=== PATIENT | female | born 1985 | race Caucasian/White ===

== ENCOUNTER 2017-05-11 09:56 | Emergency (ER) | payer SELFPAY ==
--- NOTE | 2017-05-11 10:14 | ED.PDOC ---
History of Present Illness - General Chief Complaint: ENT Problem Stated Complaint: left ear pain Time Seen by Provider: 05/11/17 10:13 Source: patient, RN notes reviewed Exam Limitations: no limitations - History of Present Illness Initial Comments: Mackenzie Gagnon 31 y/o female with history of chronic ear infection left ear stated that she started having throbbing left ear pain since yesterday. Timing/Duration: gradual EENT Location: ear (L) Prearrival Treatment: no prearrival treatment Improving Factors: nothing Worsening Factors: nothing Associated Symptoms: denies symptoms Allergies/Adverse Reactions: Allergies NO KNOWN ALLERGY Allergy (Verified 05/11/17 10:20) Home Medications: Ambulatory Orders Azithromycin [Zithromax Z-Bertin] 1 ea PO DAILY #1 pack 05/11/17 Review of Systems - Review of Systems Constitutional: States: no symptoms reported EENTM: States: see HPI Respiratory: States: no symptoms reported Cardiology: States: no symptoms reported Gastrointestinal/Abdominal: States: no symptoms reported Genitourinary: States: no symptoms reported Past Medical History (General) - Patient Medical History Hx Seizures: No Hx Asthma: No Hx of COPD: No Hx Hypertension: Yes Hx Other PMH: Yes - fibromyalgia Surgical History: tonsillectomy, other - right knee,left arm - Social History Hx Tobacco Use: No Hx Chewing Tobacco Use: No Hx Physical Abuse: No Hx Emotional Abuse: No Hx Suspected Abuse: No - Activities of Daily Living Patient Lives Alone: No - family - Female History Patient is a Female of Child Bearing Age (10 -59 yrs old): Yes Hx Last Menstrual Period: 04/29/17 Patient : No Family Medical History - Family History Mother Family History: Unknown Hx Family Hypertension: Yes Hx Family;Other: fibromyalgia Physical Exam - Physical Exam General Appearance: Alert, Comfortable, Frail Eye Exam: bilateral normal Ear Exam: right ear: auricle normal, canal normal, TM normal, left ear: evidence of perforation, other - effusion noted Nasal Exam: normal inspection Throat Exam: normal mouth inspection, pharynx normal Neck: non-tender, supple Cardiovascular/Respiratory: regular rate, rhythm, no M/R/G, normal peripheral pulses, no JVD, normal breath sounds Abdominal Exam: non-tender, no organomegaly Neurologic: oriented x 3 Skin Exam: normal color, warm/dry Departure - Departure Clinical Impression: Otitis media Qualifiers: Otitis media type: unspecified Laterality: left Chronicity: unspecified Qualified Code(s): H66.92 - Otitis media, unspecified, left ear Time of Disposition: 10:30 Disposition: Discharge to Home or Self Care Condition: Fair Departure Forms: ED Discharge - Pt. Copy, Patient Portal Self Enrollment Instructions: Ear Infections (Middle Ear) (Alternative Therapy), Middle Ear Infection Prescriptions: Azithromycin [Zithromax Z-Bertin] 1 ea PO DAILY #1 pack Home Medications: Ambulatory Orders Azithromycin [Zithromax Z-Bertin] 1 ea PO DAILY #1 pack 05/11/17 Additional Instructions: FOLLOW UP WITH PRIMARY MD 05/17/2017 as needed call for appointment
[2017-05-11 10:18] VITALS: TEMP 97.6; O2SAT 95
[2017-05-11 10:36] VITALS: BP 156/99
== END 2017-05-11 10:36 | disposition home or self-care (01) ==
LOC: ER 09:56
DX: H66.92 Otitis media, unspecified, left ear (principal); I10 Essential (primary) hypertension; M79.7 Fibromyalgia

== ENCOUNTER 2020-02-23 | Emergency (ER) | payer MEDICAID, OTHER ==
--- NOTE | 2020-02-23 09:23 | ED.PDOC ---
History of Present Illness - General Chief Complaint: General Stated Complaint: R facial swewlling/pain, denies dental pain Time Seen by Provider: 02/23/20 09:11 Source: patient Exam Limitations: no limitations - History of Present Illness Initial Comments: This is a 34-year-old female with history of hypertension presenting to the emergency room with right maxillary swelling and upper lip swelling onset 2 days ago. Patient states she had a "pimple" that she popped, followed by swelling that is progressively worsened since that time. She denies any fever. She denies any dental pain. She was seen at an urgent care center yesterday and was given a prescription for azithromycin, but states no improvement. Allergies/Adverse Reactions: Allergies NO KNOWN ALLERGY Allergy (Verified 05/11/17 10:20) Home Medications: Ambulatory Orders Azithromycin [Zithromax Z-Bertin] 1 ea PO DAILY #1 pack 05/11/17 Clindamycin HCl [Cleocin] 300 mg PO Q8H #21 cap 02/23/20 Labetalol HCl [Labetalol Hydrochloride] 100 mg PO DAILY 02/23/20 Lisinopril 20 mg PO DAILY 02/23/20 Review of Systems - Review of Systems Constitutional: Denies: chills, fever EENTM: Denies: eye pain, double vision, ear pain, throat swelling, mouth pain Gastrointestinal/Abdominal: Denies: diarrhea, nausea, vomiting Genitourinary: Denies: discharge, dysuria Skin: States: change in color, lesions Neurological: Denies: headache, tingling, weakness Endocrine: States: no symptoms reported Hematologic/Lymphatic: States: no symptoms reported Past Medical History (General) - Patient Medical History Hx Seizures: No Hx Asthma: No Hx of COPD: No Hx Congestive Heart Failure: No Hx Hypertension: Yes Hx Thyroid Disease: Yes - Hypo Hx Diabetes: No Hx Gastroesophageal Reflux: Yes Hx Cancer: No Surgical History: tonsillectomy, other - Vaccination History Hx Tetanus, Diphtheria Vaccination: No Hx Influenza Vaccination: Yes Hx Pneumococcal Vaccination: No Immunizations Up to Date: No - Social History Hx Tobacco Use: Yes Hx Chewing Tobacco Use: No Hx Alcohol Use: Yes Hx Substance Use: No Hx Substance Use Treatment: No Hx Depression: No Hx Physical Abuse: No Hx Emotional Abuse: No Hx Suspected Abuse: No - Female History Patient is a Female of Child Bearing Age (10 -59 yrs old): Yes Hx Last Menstrual Period: 04/29/17 Patient : Yes Family Medical History - Family History Mother Family History: Unknown Hx Family Hypertension: Yes Hx Cardiac Disease: Yes Hx Family;Other: fibromyalgia Physical Exam - Physical Exam General Appearance: Alert, Comfortable, No apparent distress, Obese Eye Exam: bilateral normal Ears, Nose, Throat: hearing grossly normal, normal ENT inspection, normal pharynx, other - Oropharynx is clear. She has several carious teeth, no dental or gingival tenderness, no dental abscess visualized. She has a 1 x 1 cm lesion to the right upper lip consistent with history of recently popped pimple with swelling and induration involving the right upper lip and right maxillary area. There is no palpable abscess or fluctuance. No pain with extraocular motion, no periorbital swelling. Neck: non-tender, full range of motion Respiratory: lungs clear, normal breath sounds, no respiratory distress Cardiovascular/Chest: regular rate, rhythm, no edema, no murmur Gastrointestinal/Abdominal: non tender, soft Neurologic: sleever II-XII nml as tested, no motor/sensory deficits, alert Skin Exam: normal color, warm/dry Departure - Departure Clinical Impression: Facial cellulitis Disposition: Discharge to Home or Self Care Condition: Good Instructions: Cellulitis and Erysipelas (Skin Infections) Referrals: Melinda Starr NP [Primary Care Provider] - 1-5 Days Prescriptions: Clindamycin HCl [Cleocin] 300 mg PO Q8H #21 cap Home Medications: Ambulatory Orders Azithromycin [Zithromax Z-Bertin] 1 ea PO DAILY #1 pack 05/11/17 Clindamycin HCl [Cleocin] 300 mg PO Q8H #21 cap 02/23/20 Labetalol HCl [Labetalol Hydrochloride] 100 mg PO DAILY 02/23/20 Lisinopril 20 mg PO DAILY 02/23/20 Additional Instructions: Return to the emergency room immediately for fever, severe headache, intractable vomiting, worsening swelling/spreading cellulitis, difficulty swallowing, or any other concerns.
== END 2020-02-23 09:25 | disposition home or self-care (01) ==

== ENCOUNTER 2020-11-23 12:23 | Emergency (ER) | payer OTHER ==
--- NOTE | 2020-11-23 12:40 | ED.PDOC ---
History of Present Illness - General Chief Complaint: General Stated Complaint: N/V/D,fever,body aches,cough Time Seen by Provider: 11/23/20 12:33 Source: patient Exam Limitations: no limitations - History of Present Illness Initial Comments: The patient is a 35-year-old female presented to the emergency room secondary to symptoms of runny nose, cough, shortness of breath, nausea, vomiting and diarrhea along with fevers for the last week. No abdominal pain. No urinary symptoms. No syncope. Questionable dizziness. She has not hypoxic. She has not been able to hold down her blood pressure and heart rate control medicines. She is currently tachycardic in the 140s. Timing/Duration: 1 week Severity: moderate Improving Factors: nothing Worsening Factors: nothing Associated Symptoms: cough, fever/chills, loss of appetite, malaise, na usea/vomiting, shortness of breath Allergies/Adverse Reactions: Allergies NO KNOWN ALLERGY Allergy (Verified 05/11/17 10:20) Home Medications: Ambulatory Orders Labetalol HCl [Labetalol Hydrochloride] 200 mg PO BID 02/23/20 Lisinopril 20 mg PO BID 02/23/20 Amoxicillin & Pot Clavulanate [Augmentin Tab] 875 mg PO BID #14 tab 11/23/20 Azithromycin 500 mg PO DAILY #7 tab 11/23/20 Ondansetron Odt [Zofran ODT] 4 mg PO Q8HR PRN #5 tab 11/23/20 Sucralfate Tab [Carafate Tab] 1 gm PO QID #60 tab 11/23/20 predniSONE [Prednisone] 20 mg PO DAILY #7 tab 11/23/20 Review of Systems - Review of Systems Constitutional: States: fever, malaise, weakness - Generalized EENTM: States: nose congestion Respiratory: States: cough, short of breath Cardiology: States: no symptoms reported Gastrointestinal/Abdominal: States: diarrhea, nausea, vomiting Genitourinary: States: no symptoms reported Musculoskeletal: States: no symptoms reported Skin: States: no symptoms reported Neurological: States: headache Endocrine: States: no symptoms reported All other Systems: No Change from Baseline Past Medical History (General) - Patient Medical History Hx Seizures: No Hx Asthma: No Hx of COPD: No Hx Congestive Heart Failure: No Hx Hypertension: Yes Hx Thyroid Disease: Yes - Hypo Hx Diabetes: No Hx Gastroesophageal Reflux: Yes Hx Cancer: No - Vaccination History Hx Tetanus, Diphtheria Vaccination: No Hx Influenza Vaccination: Yes Hx Pneumococcal Vaccination: No - Social History Hx Tobacco Use: Yes Hx Chewing Tobacco Use: No Hx Alcohol Use: Yes Hx Substance Use: No Hx Substance Use Treatment: No Hx Depression: No Hx Physical Abuse: No Hx Emotional Abuse: No Hx Suspected Abuse: No - Female History Hx Last Menstrual Period: 04/29/17 Patient : Yes Family Medical History - Family History Mother Family History: Unknown Hx Family Hypertension: Yes Hx Cardiac Disease: Yes Hx Family;Other: fibromyalgia Physical Exam - Physical Exam General Appearance: Alert, No apparent distress Eye Exam: bilateral normal Ears, Nose, Throat: hearing grossly normal, normal pharynx, nasal congestion Neck: full range of motion, supple Respiratory: lungs clear - Frequent cough, normal breath sounds, no respiratory distress, no accessory muscle use Cardiovascular/Chest: normal peripheral pulses, no edema, tachycardia Peripheral Pulses: radial,right: 2+, radial,left: 2+ Gastrointestinal/Abdominal: non tender - Obese, soft Rectal Exam: deferred Back Exam: no CVA tenderness, no vertebral tenderness Extremity: non-tender, normal inspection, no pedal edema, normal capillary refill Neurologic: group cio II-XII nml as tested, alert, normal mood/affect, oriented x 3 Skin Exam: normal color Comments: Vital Signs - 24 hr 11/23/20 11/23/20 11/23/20 12:36 13:24 13:25 Temperature 101.8 F H Pulse Rate [ 138 H 130 H 141 H Left Brachial] Respiratory 24 Rate Blood Pressure 132/101 160/123 151/129 [Left Arm] O2 Sat by Pulse 94 L Oximetry 11/23/20 11/23/20 11/23/20 13:55 15:06 16:06 Temperature Pulse Rate [ 121 H 110 H 104 H Left Brachial] Respiratory 20 20 20 Rate Blood Pressure 149/99 167/101 158/84 [Left Arm] O2 Sat by Pulse 94 L 94 L 94 L Oximetry Progress - Progress Progress: 11/23/20 16:33 The patient is a 35-year-old female presented emergency room secondary to cough and fever along with nausea and vomiting intermittent over the past 5 to 7 days. She is significantly tachycardic upon arrival and does have a fever. No abdominal pain. No blood in the stool or vomitus. The patient has responded well to nausea medications along with IV fluids. Tachycardia has ess entially resolved. She did test negative for coronavirus on a rapid test here however her symptoms have been present for an extended period of time, reducing the likelihood of a positive coronavirus test even if it were present. We will treat the patient with a mixed approach to target possible bacterial gastroenteritis and or pneumonia as well as possible coronavirus. The patient is going to be placed on oral prednisone at 20 mg for 7 days. She is also going to be placed on oral azithromycin and Augmentin for 7 days. The patient will be written for Carafate for gastritis issues and Zofran for any nausea and vomiting. She needs to maintain a bland diet and keep her self well-hydrated. No evidence of any hypoxia. ER warnings are given for any significant worsening. Chest x-ray does confirm the possibility of a mild bibasilar pneumonia. [email or web address] [email or web address] [id number] - Results/Orders Results/Orders: EKG shows sinus tachycardia at 130 bpm. Very mild right axis deviation. Normal R wave progression. Normal QT interval. No ST segment or T wave changes indicative of acute ischemia. Mild left atrial dilation. Laboratory Tests 11/23/20 11/23/20 11/23/20 12:41 13:06 13:06 WBC 4.4 L RBC 5.04 Hgb 13.5 Hct 41.6 MCV 82.5 MCH 26.8 L MCHC 32.5 L RDW 14.1 Plt Count 197 MPV 8.8 Absolute Neuts (auto) 3.00 Absolute Lymphs (auto) 1.00 Absolute Monos (auto) 0.40 Absolute Eos (auto) 0.00 Absolute Basos (auto) 0.10 Neutrophils % 67.6 Lymphocytes % 22.4 Monocytes % 8.9 Eosinophils % 0.0 L Basophils % 1.1 PT INR PTT (SP) D-Dimer, Quantitative Sodium 137 Potassium 3.9 Chloride 100 L Carbon Dioxide 24 Anion Gap 16.9 BUN 10 Creatinine 1.12 BUN/Creatinine Ratio 8.9 L Random Glucose 101 Serum Osmolality 273.0 L Lactic Acid Calcium 8.7 Magnesium 2.0 Total Bilirubin 0.7 AST 99 H ALT 70 H Alkaline Phosphatase 81 Creatine Kinase 249 H* CK-MB (CK-2) 0.9 CK-MB (CK-2) % Not Reportable Troponin I < 0.02 C-Reactive Protein 7.7 H B-Natriuretic Peptide < 15.0 Serum Total Protein 8.2 Albumin 4.2 Globulin 4.0 H Albumin/Globulin Ratio 1.1 Amylase 30 Lipase 21 L TSH 1.19 Serum HCG, Qual Urine Color Urine Appearance Urine pH Ur Specific [place] Urine Protein Urine Glucose (UA) Urine Ketones Urine Blood Urine Nitrite Urine Bilirubin Urine Urobilinogen Ur Leukocyte Esterase Urine RBC Urine WBC Ur Epithelial Cells Urine Bacteria Urine HCG, Qual Group A Strep Rapid 11/23/20 11/23/20 11/23/20 13:06 13:06 13:06 WBC RBC Hgb Hct MCV MCH MCHC RDW Plt Count MPV Absolute Neuts (auto) Absolute Lymphs (auto) Absolute Monos (auto) Absolute Eos (auto) Absolute Basos (auto) Neutrophils % Lymphocytes % Monocytes % Eosinophils % Basophils % PT 10.7 INR 1.08 PTT (SP) 27.1 D-Dimer, Quantitative 224.0 Sodium Potassium Chloride Carbon Dioxide Anion Gap BUN Creatinine BUN/Creatinine Ratio Random Glucose Serum Osmolality Lactic Acid 1.3 Calcium Magnesium Total Bilirubin AST ALT Alkaline Phosphatase Creatine Kinase CK-MB (CK-2) CK-MB (CK-2) % Troponin I C-Reactive Protein B-Natriuretic Peptide Serum Total Protein Albumin Globulin Albumin/Globulin Ratio Amylase Lipase TSH Serum HCG, Qual Negative Urine Color Urine Appearance Urine pH Ur Specific [place] Urine Protein Urine Glucose (UA) Urine Ketones Urine Blood Urine Nitrite Urine Bilirubin Urine Urobilinogen Ur Leukocyte Esterase Urine RBC Urine WBC Ur Epithelial Cells Urine Bacteria Urine HCG, Qual Cancelled Group A Strep Rapid Negative 11/23/20 14:41 WBC RBC Hgb Hct MCV MCH MCHC RDW Plt Count MPV Absolute Neuts (auto) Absolute Lymphs (auto) Absolute Monos (auto) Absolute Eos (auto) Absolute Basos (auto) Neutrophils % Lymphocytes % Monocytes % Eosinophils % Basophils % PT INR PTT (SP) D-Dimer, Quantitative Sodium Potassium Chloride Carbon Dioxide Anion Gap BUN Creatinine BUN/Creatinine Ratio Random Glucose Serum Osmolality Lactic Acid Calcium Magnesium Total Bilirubin AST ALT Alkaline Phosphatase Creatine Kinase CK-MB (CK-2) CK-MB (CK-2) % Troponin I C-Reactive Protein B-Natriuretic Peptide Serum Total Protein Albumin Globulin Albumin/Globulin Ratio Amylase Lipase TSH Serum HCG, Qual Urine Color Yellow Urine Appearance Clear Urine pH 6.0 Ur Specific [place] 1.025 Urine Protein 100 H Urine Glucose (UA) Negative Urine Ketones Trace Urine Blood Negative Urine Nitrite Negative Urine Bilirubin Small H Urine Urobilinogen 1.0 Ur Leukocyte Esterase Negative Urine RBC 0 Urine WBC 0 Ur Epithelial Cells 1-3 Urine Bacteria 0 Urine HCG, Qual Group A Strep Rapid Chest x-ray to those developing bibasilar pneumonia versus atelectasis. Departure - Departure Clinical Impression: Gastroenteritis, Dehydration, Sinus tachycardia Pneumonia Qualifiers: Pneumonia type: due to unspecified organism Laterality: bilateral Lung location: lower lobe of lung Qualified Code(s): J18.9 - Pneumonia, unspecified organism Disposition: Discharge to Home or Self Care Condition: Fair Departure Forms: ED Discharge - Pt. Copy, Patient Portal Self Enrollment Instructions: Pneumonia, Adult (DC), Viral Gastroenteritis, Adult (DC) Diet: bland diet Activity: increase activity as tolerated Referrals: Melinda Starr NP [Primary Care Provider] - 1-2 Weeks Prescriptions: Ondansetron Odt [Zofran ODT] 4 mg PO Q8HR PRN #5 tab PRN Reason: Nausea--Moderate Amoxicillin & Pot Clavulanate [Augmentin Tab] 875 mg PO BID #14 tab Azithromycin 500 mg PO DAILY #7 tab Sucralfate Tab [Carafate Tab] 1 gm PO QID #60 tab predniSONE [Prednisone] 20 mg PO DAILY #7 tab Home Medications: Ambulatory Orders Labetalol HCl [Labetalol Hydrochloride] 200 mg PO BID 02/23/20 Lisinopril 20 mg PO BID 02/23/20 Amoxicillin & Pot Clavulanate [Augmentin Tab] 875 mg PO BID #14 tab 11/23/20 Azithromycin 500 mg PO DAILY #7 tab 11/23/20 Ondansetron Odt [Zofran ODT] 4 mg PO Q8HR PRN #5 tab 11/23/20 Sucralfate Tab [Carafate Tab] 1 gm PO QID #60 tab 11/23/20 predniSONE [Prednisone] 20 mg PO DAILY #7 tab 11/23/20 Additional Instructions: The patient is a 35-year-old female presented emergency room secondary to cough and fever along with nausea and vomiting intermittent over the past 5 to 7 days. She is significantly tachycardic upon arrival and does have a fever. No abdominal pain. No blood in the stool or vomitus. The patient has responded well to nausea medications along with IV fluids. Tachycardia has essentially resolved. She did test negative for coronavirus on a rapid test here however her symptoms have been present for an extended period of time, reducing the likelihood of a positive coronavirus test even if it were present. We will treat the patient with a mixed approach to target possible bacterial gastroenteritis and or pneumonia as well as possible coronavirus. The patient is going to be placed on oral prednisone at 20 mg for 7 days. She is also going to be placed on oral azithromycin and Augmentin for 7 days. The patient will be written for Carafate for gastritis issues and Zofran for any nausea and vomiting. She needs to maintain a bland diet and keep her self well-hydrated. No evidence of any hypoxia. ER warnings are given for any significant worsening. Chest x-ray does confirm the possibility of a mild bibasilar pneumonia.
[2020-11-23] MEDS ORDERED: SODIUM CHLORIDE 0.9% 1000ML 1,000 ML IVS ONE (12:41)
[2020-11-23] MEDS ORDERED: ONDANSETRON ODT 8 MG TAB SL ONE (12:41)
[2020-11-23] MEDS ORDERED: IBUPROFEN 200 MG TAB PO ONE (12:42)
[2020-11-23] MEDS ORDERED: ALUMINUM & MAGNESIUM HYDROXIDE 30 ML UD PO ONE (12:42)
--- NOTE | 2020-11-23 13:57 | RAD ---
EXAM DESCRIPTION: Abdomen Series CLINICAL HISTORY: 35 years Female, cough, fever, nvd COMPARISON: None. FINDINGS: The cardiomediastinal silhouette is unremarkable. Subtle bibasilar interstitial prominence, no pleural effusion. There is no free subdiaphragmatic gas or intra-abdominal air fluid level. There is a moderate amount of stool and gas scattered throughout the colon, but the bowel gas pattern is nonobstructive. No suspicious intra-abdominal calcification or mass is identified, and the bones are unremarkable. IMPRESSION: Questionable developing bibasilar pneumonia versus subsegmental atelectasis or scarring. No obstruction, pneumoperitoneum or acute intra-abdominal abnormality. Electronically signed by: Linus Rosas MD 11/23/2020 1:55 PM [employer]
[2020-11-23] MEDS ORDERED: predniSONE 20 MG TAB PO ONE (14:20)
[2020-11-23] MEDS ORDERED: AZITHROMYCIN 250 MG TAB PO ONE (14:20)
[2020-11-23] MEDS ORDERED: AMOXICILLIN & POT CLAVULANATE 875 MG TAB PO ONE (14:20)
[2020-11-23] MEDS ORDERED: SODIUM CHLORIDE 0.9% 1000ML 500 ML IVS ONE (14:21)
[2020-11-23] MEDS ORDERED: LABETALOL 200 MG TAB PO ONE (16:31)
[2020-11-23 16:47] VITALS: BP 129/86; TEMP 98.6; O2SAT 96
== END 2020-11-23 16:47 | disposition home or self-care (01) ==
LOC: ER 12:23
DX: J18.9 Pneumonia, unspecified organism (principal); K52.9 Noninfective gastroenteritis and colitis, unspecified; E86.0 Dehydration; R00.0 Tachycardia, unspecified; Z20.822 Contact with and (suspected) exposure to COVID-19; I10 Essential (primary) hypertension; E03.9 Hypothyroidism, unspecified; Z87.891 Personal history of nicotine dependence; Z79.899 Other long term (current) drug therapy
CPT/HCPCS: 36415; 74019; 80053; 81001; 82150; 82550; 82553; 83605; 83690; 83735; 83880; 84443; 84484; 84703; 85025; 85379; 85610; 85730; 86140; 87040; 87070; 87502; 87635; 87880; 93005; J7030; J7512; Q0144